=== PATIENT | male | born 1960 | race Caucasian/White ===

== ENCOUNTER 2018-10-25 20:01 | Emergency (ER) | payer BC ==
[2018-10-25 20:07] VITALS: RESP 18; TEMP 98
[2018-10-25] MEDS ORDERED: DIAZEPAM 5 MG TAB PO STA (20:19)
[2018-10-25] MEDS ORDERED: HYDROcodone/APAP 5-325MG 1 EACH TAB PO STA (20:19)
[2018-10-25] MEDS ORDERED: ACET/COD 300 MG/30 MG STARTER PACK 6 TAB BTL PO STA (20:35)
--- NOTE | 2018-10-25 20:53 | XR ---
EXAMINATION TYPE: XR lumbar spine 2 or 3V DATE OF EXAM: 10/25/2018 COMPARISON: NONE HISTORY: Injury and pain TECHNIQUE: 3 views FINDINGS: There is 2 cm anterior subluxation of L4 in relation L5. There is severe narrowing of L4-5 disc space. 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 Sacroiliac joints are intact. There is no compressio n fracture. 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 No acute fracture seen.
--- NOTE | 2018-10-25 21:02 | ED ---
Fall HPI - General Chief Complaint: Fall Stated Complaint: Fall/Back Pain Time Seen by Provider: 10/25/18 20:06 Source: patient, EMS Mode of arrival: EMS - History of Present Illness Initial Comments: 58-year-old male presenting for low back pain and fall. Patient states that he was walking from his living room on to his posterior drawer with a step-off. He states he slipped causing to fall his left side of his back. Patient states that he had pain at the left side of his back however he was able to ambulate denies any numbness tingling or loss of sensation of the legs he denies any pain radiating down the legs. He denies any injury to the abdomen or chest. Denies any head injury or injury to the neck. Patient denied loss of consciousness. Patient denies use of blood thinners. Patient states that he felt like he could go to an urgent care for imaging studies and then go home however went to an urgent care facility where they performed number x-rays were revealing no fractures and then was sent to the emergency department for further evaluation. Patient has no other complaints aside from the left lower back pain. - Related Data Home Medications Medication Instructions Recorded Confirmed Ibuprofen [Motrin] 200 mg PO Q6HR PRN 04/21/15 04/27/15 Ranitidine HCl [Zantac] 150 mg PO QAM 04/21/15 04/27/15 guaiFENesin [Mucinex] 600 mg PO DAILY 04/21/15 04/27/15 Acetaminophen [Tylenol] 750 mg PO Q4H 04/27/15 04/27/15 Previous Rx's Medication Instructions Recorded Cyclobenzaprine [Flexeril] 10 mg PO TID PRN 7 Days #21 tab 10/25/18 Allergies Allergy/AdvReac Type Severity Reaction Status Date / Time No Known Allergies Allergy Verified 04/21/15 15:51 Review of Systems ROS Statement: Those systems with pertinent positive or pertinent negative responses have been documented in the HPI. ROS Other: All systems not noted in ROS Statement are negative. Past Medical History Past Medical History: GERD/Reflux Additional Past Medical History / Comment(s): hx vericose veins,leptospirosis History of Any Multi-Drug Resistant Organisms: None Reported Additional Past Surgical History / Comment(s): varicose veins Past Anesthesia/Blood Transfusion Reactions: No Reported Reaction Past Psychological History: No Psychological Hx Reported Smoking Status: Never smoker Past Alcohol Use History: None Reported Past Drug Use History: None Reported - Past Family History Mother Family Medical History: Cancer Additional Family Medical History / Comment(s): lung ca Father Family Medical History: No Reported History General Exam - General Exam Comments Initial Comments: General: The patient is awake and alert, in no distress, and does not appear acutely ill. Eye: +3 mm pupils are equal, round and reactive to light, extra-ocular movements are intact. No nystagmus. There is normal conjunctiva bilaterally. No signs of icterus. Ears, nose, mouth and throat: There are moist mucous membranes and no oral lesions. No raccoon or murillo sign. Neck: The neck is supple, there is no tenderness or JVD. Cardiovascular: There is a regular rate and rhythm. No murmur, rub or gallop is appreciated. Respiratory: Lungs are clear to auscultation, respirations are non-labored, breath sounds are equal. No wheezes, stridor, rales, or rhonchi. Gastrointestinal: Soft, non-distended, non-tender abdomen without masses or organomegaly noted. There is no rebound or guarding present. No CVA tenderness. Bowel sounds are unremarkable. Musculoskeletal: Upon inspection of the back of the very low lumbar spine there is an area of superficial abrasion and ecchymosis. This is to the left of the spine. There is no ecchymosis in the area of the CVA region. Normal ROM, no tenderness of the lower extremity is bilaterally. Strength 5/5 of the lower extremities equal and comparison bilaterally. Sensation intact of the lower extremities including the saddle region bilaterally. DP pulses equal bilaterally 2+. Ambulates without difficulty. Neurological: A&O x 3. CN II-XII intact grossly, There are no obvious motor or sensory deficits. Coordination appears grossly intact. Speech is normal. Skin: Skin is warm and dry and no rashes or lesions are noted. Psychiatric: Cooperative, appropriate mood & affect, normal judgment. Course Vital Signs 10/25/18 10/25/18 20:04 21:19 Temperature 98 F 98 F Pulse Rate 77 86 Respiratory 18 18 Rate Blood Pressure 129/77 119/86 O2 Sat by Pulse 96 93 L Oximetry Medical Decision Making - Medical Decision Making Very well-appearing 58-year-old male presenting for back pain after fall. Imaging studies revealed no acute process such as fracture. Patient has minimal midline tenderness to palpation on lumbar spine examination no midline tenderness to patient the cervical thoracic spine. Patient does have mostly paravertebral tenderness left-sided. Motor there is an area of a superficial abrasion as well as mild ecchymosis. No ecchymosis in the CVA region. Patient has no abdominal pain. Patient has no findings consistent with cauda equina and ambulate without difficulty. The pain does not radiate down the legs. Patient has no radicular symptoms. Patient denies head injury or any other areas of complaint. At this time do feel patient is stable for discharge with a muscle relaxant as well as pain medication. Patient is agreeable this care plan and was discharged appearing well and discussed the case by attending provider Dr. Hatch who was agreeable with patient care and discharge. Disposition Clinical Impression: Back pain, Fall, Ecchymosis Disposition: HOME SELF-CARE Condition: Good Instructions (If sedation given, give patient instructions): Low Back Strain (ED) Additional Instructions: Please use medication as discussed. Please follow-up with family doctor in the next 2 days. Please return to emergency room if the symptoms increase or worsen or for any other concerns-including loss of bowel or bladder control, unable to urinate fevers inability to walk loss of sensation of the lower extremities or weakness of the lower extremities.. Prescriptions: Cyclobenzaprine [Flexeril] 10 mg PO TID PRN 7 Days #21 tab PRN Reason: Muscle Spasm Is patient prescribed a controlled substance at d/c from ED?: No Referrals: Jonathan Lin MD [Primary Care Provider] - 1-2 days Time of Disposition: 21:08
[2018-10-25 21:21] VITALS: BP 119/86; PULSE 86
== END 2018-10-25 21:23 | disposition home or self-care (01) ==
LOC: EC 20:01
DX: S30.0XXA Contusion of lower back and pelvis, initial encounter (principal); K21.9 Gastro-esophageal reflux disease without esophagitis; Z79.899 Other long term (current) drug therapy; W01.0XXA Fall on same level from slipping, tripping and stumbling without subsequent striking against object, initial encounter; Y93.01 Activity, walking, marching and hiking; Y92.008 Other place in unspecified non-institutional (private) residence as the place of occurrence of the external cause
CPT/HCPCS: 72100; 99283

== ENCOUNTER → 2018-10-30 | Outpatient (CLI) | payer BC ==
--- NOTE | 2018-10-30 08:58 | MR ---
EXAMINATION TYPE: MR lumbar spine wo con DATE OF EXAM: 10/30/2018 COMPARISON: Lumbar spine x-ray from 5 days ago HISTORY: Falling injury with left-sided low back pain. Lumbar disc prolapse per order. TECHNIQUE: Multiplanar, multisequence imaging of the lumbar spine is performed without IV contrast. FINDINGS: Sagittal images of the lumbar spine show persistent grade 2 anterolisthesis L4 on L5 measur ed 12 mm sagittal image 8. Vertebral body heights are maintained. Multilevel disc desiccation is seen . There is advanced disc space narrowing with vacuum phenomenon L4-L5 level. Bone marrow signal inten sity so some heterogeneity. There is heterogeneous with Modic type I endplate changes extending to ri ght of midline L4-L5 level. There is mild to moderate multilevel anterior spurring. Conus medullaris is normal in position and signal in the inferior L1 level Axial images show the T12-L1 level to appear within normal limits. Axial images at the L1-L2 level shows mild broad-based posterior disc protrusion mildly effacing the anterior thecal sac on axial image 25. Axial images at the L2-L3 level show mild facet degenerative changes bilaterally. There is mild-to-mo derate broad disc bulge effacing the anterior thecal sac. There is mild left greater than right infer ior neural foraminal narrowing. Axial images at the L3-L4 level show moderate facet degenerative changes and ligamentum flavum hypert rophy effacing posterolateral thecal sac. There is mild broad disc bulge. Spinal canal is preserved. Bilateral neural foramina are patent. Axial images at the L4-L5 level shows spondylolisthesis and pseudodisc herniation with [id number] te facet arthropathy. Spinal canal is pushed posteriorly at this level but fairly well-maintained. Th ere is moderate bilateral inferior neural foraminal narrowing noted. Axial images at the L5-S1 level show [id number] facet degenerative changes bilaterally. Spinal canal is preserved. Bilateral neural foramina are patent. No suspicious incidental retroperitoneal findings. IMPRESSION: Grade 2 spondylolisthesis L4-L5 level. Multilevel degenerative changes are seen as detail ed above. Scattered smaller disc herniations. No large disc herniation. Multilevel facet arthropathy noted.
== END | disposition home or self-care (01) ==
LOC: RADMRIMAIN 07:34
PROVIDERS: ATTEND Family Medicine
DX: M51.26 Other intervertebral disc displacement, lumbar region (principal); M43.16 Spondylolisthesis, lumbar region; M47.816 Spondylosis without myelopathy or radiculopathy, lumbar region; M46.96 Unspecified inflammatory spondylopathy, lumbar region
CPT/HCPCS: 72148

== ENCOUNTER 2019-01-28 09:00 | Day surgery (SDC) | payer BC ==
[2019-01-26 09:28] VITALS: BMI 31.1
--- NOTE | 2019-01-28 08:32 | P.GSHP ---
History of Present Illness H&P Date: 01/28/19 CHIEF COMPLAINT: Colon screen HISTORY OF PRESENT ILLNESS: The patient is a 58-year-old male who presents for colon screen. Lower endoscopy was offered for further evaluation and management. PAST MEDICAL HISTORY: Please see list. PAST SURGICAL HISTORY: Please see list. MEDICATIONS: Please see list. ALLERGIES: Please see list. SOCIAL HISTORY: No illicit drug use FAMILY HISTORY: No reports of Crohn disease or ulcerative colitis. REVIEW OF ORGAN SYSTEMS: CONSTITUTIONAL: No reports of fevers or chills. PHYSICAL EXAM: VITAL SIGNS: Stable GENERAL: Well-developed pleasant in no acute distress. HEENT: No scleral icterus. Extraocular movements grossly intact. Moist buccal mucosa. NECK: Supple without lymphadenopathy. CHEST: Unlabored respirations. Equal bilateral excursions. CARDIOVASCULAR: Regular rate and rhythm. Distal 2+ pulses. ABDOMEN: Soft, nontender, nondistended. MUSCULOSKELETAL: No clubbing, cyanosis, or edema. ASSESSMENT: 1. Colon screen. PLAN: 1. Recommend proceeding with a lower endoscopy Past Medical History Past Medical History: GERD/Reflux Additional Past Medical History / Comment(s): hx varicose veins, leptospirosis 1998 History of Any Multi-Drug Resistant Organisms: None Reported Additional Past Surgical History / Comment(s): varicose veins sx, eye sx Past Anesthesia/Blood Transfusion Reactions: No Reported Reaction Smoking Status: Never smoker - Past Family History Mother Family Medical History: Cancer Additional Family Medical History / Comment(s): lung ca Father Family Medical History: No Reported History Medications and Allergies Home Medications Medication Instructions Recorded Confirmed Type Acetaminophen [Tylenol] 750 mg PO Q4H PRN 04/27/15 01/26/19 History Ranitidine HCl [Zantac] 150 mg PO DAILY PRN 01/26/19 01/26/19 History Allergies Allergy/AdvReac Type Severity Reaction Status Date / Time No Known Allergies Allergy Verified 01/26/19 09:22
[~2019-01-28 09:00] MED LIST: LACTATED RINGERS 1,000 ML IV SCH; LIDOCAINE 1% 20 ML VIAL (10MG/ML) FOR IV START INTRADERMA PRN
[2019-01-28 09:36] VITALS: RESP 16; TEMP 97.1
[2019-01-28] MEDS ORDERED: PROPOFOL 10 MG/ML 20 ML VIAL IV ONE (10:12)
--- NOTE | 2019-01-28 10:50 | P.PCN ---
Date of Procedure: 01/28/19 Description of Procedure: PREOPERATIVE DIAGNOSIS: Personal history colon polys Family history colon polyps Colonoscopy screening, high risk POSTOPERATIVE DIAGNOSIS: Personal history colon polys Family history colon polyps Colonoscopy screening, high risk Multiple tubular adenomas throughout the colon. External hemorrhoids, grade 2 OPERATION: Colonoscopy to the ileocecal valve and appendiceal orifice. Colonoscopy with multiple hot snare polypectomies SURGEON: Manju Amador MD. ANESTHESIA: MAC. INDICATIONS: The patient is a 58-year-old female who presents for colonoscopy screening. Last colonoscopy over 3 years ago. Benefits and risks were described and informed consent was obtained. DESCRIPTION OF PROCEDURE: The patient had undergone Golytely prep. He had been brought into the operating room and laid in the left lateral decubitus position. After adequate intravenous sedation, the rectum was examined with 2% lidocaine jelly. The prostate was unremarkable. External hemorrhoids were encountered. The rectal tone was within normal limits. No lesions were palpated in the rectal vault. An Olympus colonoscope was advanced until the ileocecal valve and appendiceal orifice were clearly viewed. The prep was fair with visualization of the mucosal folds. The scope was removed with visualization of each mucosal fold. No scattered diverticulosis was encountered. Multiple colonic polyps were found and treated with snare polypectomy. No evidence of focal colitis was found. Retroflexion of the scope demonstrated grade 1 internal hemorrhoids without active bleeding or inflammation. The colon was desufflated. The patient had tolerated the procedure well. Withdrawal time was over 6 minutes. FINDINGS: Aronchick preparation quality scale 2 (1-5) Internal hemorrhoids, grade 1 External hemorrhoids, grade 2. No arteriovenous malformations. No sigmoid diverticulosis Removal of 5 polyps: - Snare polypectomy ascending colon x 2, 5 and 6 mm tubulovillous adenoma polyp. - Snare polypectomy at hepatic flexure, 8 mm flat villous adenoma polyp. - Snare polypectomy of proximal transverse colon, 12 mm flat villous adenoma polyp. - Snare polypectomy of proximal midtransverse colon, 6 mm flat villous adenoma polyp. No focal colitis. RECOMMENDATIONS: Given severity of tubular adenomas, recommend repeat colonoscopy 2 years, 2020. Plan - Discharge Summary Discharge Rx Participant: No New Discharge Prescriptions: No Action Acetaminophen [Tylenol] 750 mg PO Q4H PRN PRN Reason: Pain Ranitidine HCl [Zantac] 150 mg PO DAILY PRN PRN Reason: GERD Discharge Medication List Acetaminophen [Tylenol] 750 mg PO Q4H PRN 04/27/15 [History] Ranitidine HCl [Zantac] 150 mg PO DAILY PRN 01/26/19 [History] Follow up Appointment(s)/Referral(s): Manju Amador MD [STAFF PHYSICIAN] - As Needed Patient Instructions/Handouts: Colorectal Polyps (DC) Activity/Diet/Wound Care/Special Instructions: Repeat colonoscopy 2 years, 2020 Discharge Disposition: HOME SELF-CARE
[2019-01-28 11:28] VITALS: BP 132/80; PULSE 75
== END 2019-01-28 11:50 | disposition home or self-care (01) ==
LOC: ORWHC2ENDO 09:00
PROVIDERS: ATTEND Surgery Plastic and Reconstructive Surgery
DX: Z12.11 Encounter for screening for malignant neoplasm of colon (principal); D12.2 Benign neoplasm of ascending colon; D12.3 Benign neoplasm of transverse colon; K64.4 Residual hemorrhoidal skin tags; K64.8 Other hemorrhoids; K21.9 Gastro-esophageal reflux disease without esophagitis; I83.90 Asymptomatic varicose veins of unspecified lower extremity; Z80.1 Family history of malignant neoplasm of trachea, bronchus and lung; Z86.010 Personal history of colon polyps; Z83.71 Family history of colonic polyps; Z79.899 Other long term (current) drug therapy; Z98.890 Other specified postprocedural states
CPT/HCPCS: 88305; 45385; J2704

== ENCOUNTER → 2020-03-25 | Outpatient (CLI) | payer BC ==
[2020-03-25 08:49] LABS: Basophils # (A) 0.1 k/uL (0-0.2); Basophils % (A) 1 %; Eosinophils # (A) 0.5 k/uL (0-0.7); Eosinophils % (A) 6 %; HCT 49.3 % (39.0-53.0); Lymphocytes # (A) 1.8 k/uL (1.0-4.8); Lymphocytes % (A) 21 %; MCH 30.7 pg (25.0-35.0); MCHC 34.5 g/dL (31.0-37.0); Mean Platelet Volume 6.5; Monocytes # (A) 0.6 k/uL (0-1.0); Monocytes % (A) 7 %; Neutrophils # (A) 5.3 k/uL (1.3-7.7); Neutrophils % (A) 62 %; Platelet Count 329 k/uL (150-450); RBC 5.54 m/uL (4.30-5.90); RDW 12.5 % (11.5-15.5); WBC 8.4 k/uL (3.8-10.6)
[2020-03-25 09:06] LABS: Appearance,Urine Clear (Clear); Bilirubin,Urine Negative (Negative); Blood,Urine Negative (Negative); Color,Urine Light Yellow; Glucose,Urine (UA) Negative (Negative); Ketones,Urine Negative (Negative); Leukocyte Esterase,Urine Negative (Negative); Nitrite,Urine Negative (Negative); PH, Urine 5.5 (5.0-8.0); Protein,Urine Negative (Negative); Specific Gravity,Urine 1.004 (1.001-1.035); Urobilinogen,Urine <2.0 mg/dL (<2.0)
[2020-03-25 15:53] LABS: African American GFR (CKD) 85.3 (60.0-200.0); Albumin 4.3 g/dL (3.80-4.90); Albumin/Globulin Ratio 2.15 (1.60-3.17); Anion Gap 7.6 mmol/L (4.00-12.00); BUN/Creat Ratio 12.73 Ratio (12.00-20.00); Calcium 9.5 mg/dL (8.7-10.3); Carbon Dioxide 26.4 mmol/L (21.6-31.8); Chol/HDL Ratio 5.97; LDL Cholesterol,Calculated 144.2 mg/dL (0.0-131.0); Non-African American GFR(CKD) 73.6 (60.0-200.0); Potassium 4.2 mmol/L (3.5-5.5); Total Bilirubin 0.7 mg/dL (0.2-1.2); Total Protein 6.3 g/dL (6.2-8.2); VLDL Calculation 34.8 mg/dL (5.00-40.00)
[2020-03-25 16:01] LABS: PSA Annual Screen 1.4 ng/mL (0.0-4.0)
== END | disposition home or self-care (01) ==
LOC: LABWHC1 08:08
PROVIDERS: ATTEND Family Medicine
DX: Z00.00 Encounter for general adult medical examination without abnormal findings (principal); Z12.5 Encounter for screening for malignant neoplasm of prostate; E55.9 Vitamin D deficiency, unspecified
CPT/HCPCS: 80061; 80053; 84443; 85025; 81003; 82306; 36415; G0103

== ENCOUNTER 2022-01-18 07:49 | Day surgery (SDC) | payer BC ==
[2022-01-16 11:03] VITALS: BMI 29.0
[2022-01-18] MEDS ORDERED: LACTATED RINGERS 1,000 ML IV SCH (07:50)
[2022-01-18] MEDS ORDERED: LIDOCAINE 1% (10MG/ML) FOR IV START INTRADERMA PRN (07:50)
[2022-01-18 08:37] VITALS: TEMP 97.7
[2022-01-18] MEDS ORDERED: PROPOFOL 10 MG/ML 20 ML VIAL IV ONE (09:32)
--- NOTE | 2022-01-18 09:33 | P.GSHP ---
History of Present Illness H&P Date: 01/18/22 CHIEF COMPLAINT: Colon screen HISTORY OF PRESENT ILLNESS: The patient is a 61-year-old male who presents for colon screen. Lower endoscopy was offered for further evaluation and management. PAST MEDICAL HISTORY: Please see list. PAST SURGICAL HISTORY: Please see list. MEDICATIONS: Please see list. ALLERGIES: Please see list. SOCIAL HISTORY: No illicit drug use FAMILY HISTORY: No reports of Crohn disease or ulcerative colitis. REVIEW OF ORGAN SYSTEMS: CONSTITUTIONAL: No reports of fevers or chills. PHYSICAL EXAM: VITAL SIGNS: Stable GENERAL: Well-developed pleasant in no acute distress. HEENT: No scleral icterus. Extraocular movements grossly intact. Moist buccal mucosa. NECK: Supple without lymphadenopathy. CHEST: Unlabored respirations. Equal bilateral excursions. CARDIOVASCULAR: Regular rate and rhythm. Distal 2+ pulses. ABDOMEN: Soft, nontender, nondistended. MUSCULOSKELETAL: No clubbing, cyanosis, or edema. ASSESSMENT: 1. Colon screen. PLAN: 1. Recommend proceeding with a lower endoscopy Past Medical History Past Medical History: GERD/Reflux Additional Past Medical History / Comment(s): hx varicose veins, leptospirosis 1998 History of Any Multi-Drug Resistant Organisms: None Reported Additional Past Surgical History / Comment(s): varicose veins sx, eye sx Past Anesthesia/Blood Transfusion Reactions: No Reported Reaction Smoking Status: Never smoker - Past Family History Mother Family Medical History: Cancer Additional Family Medical History / Comment(s): lung ca Father Family Medical History: No Reported History Medications and Allergies Home Medications Medication Instructions Recorded Confirmed Type Loratadine 10 mg PO DAILY 01/16/22 01/18/22 History Allergies Allergy/AdvReac Type Severity Reaction Status Date / Time No Known Allergies Allergy Verified 01/18/22 08:37 Surgical - Exam Vital Signs Temp Pulse Resp BP Pulse Ox 97.7 F 71 16 142/85 98 01/18/22 08:34 01/18/22 08:34 01/18/22 08:34 01/18/22 08:34 01/18/22 08:34
--- NOTE | 2022-01-18 10:11 | P.PCN ---
Date of Procedure: 01/18/22 Description of Procedure: PREOPERATIVE DIAGNOSIS: Personal history of colon polyps POSTOPERATIVE DIAGNOSIS: Tubular adenoma of descending colon Tubular adenoma sigmoid colon Tubular adenoma transverse colon Sigmoid diverticulosis Internal hemorrhoids, grade 2 OPERATION: Colonoscopy to the ileocecal valve and appendiceal orifice, cecum Colonoscopy with hot snare polypectomy SURGEON: Manju Amador MD. ANESTHESIA: MAC. INDICATIONS: The patient is an 61-year-old male who presents personal history of colon polyps. Last colonoscopy 5 years. Benefits and risks were described and informed consent was obtained. DESCRIPTION OF PROCEDURE: The patient had undergone Sutab prep. The patient had been brought into the operating room and laid in the left lateral decubitus position. After adequate intravenous sedation, the rectum was examined with 2% lidocaine jelly. The prostate was unremarkable. External hemorrhoids were encountered. The rectal tone was within normal limits. No lesions were palpated in the rectal vault. An Olympus colonoscope was advanced until the cecum, ileocecal valve and appendiceal orifice were clearly viewed. The prep was good. Sigmoid diverticulosis was encountered. Colonic polyps were found and removed. No evidence of focal colitis was found. Retroflexion of the scope demonstrated grade 2 internal hemorrhoids without active bleeding or inflammation. The colon was desufflated. The patient had tolerated the procedure well. Withdrawal time was over 6 minutes. FINDINGS: Aronchick preparation quality scale 2 (1-5) Internal hemorrhoids, grade 2 External hemorrhoids, grade 2. No arteriovenous malformations. Sigmoid diverticulosis Removal of 4 polyps: - Snare polypectomy 20 cm from the anal verge, 5 mm tubulovillous adenoma polyp, sigmoid colon - Snare polypectomy transverse, 8 mm flat villous adenoma polyp. - Snare polypectomy 40 cm from the anal verge 2, 6-8 mm flat villous adenoma polyp, descending colon No focal colitis. RECOMMENDATIONS: Given severity of tubular adenomas, recommend repeat colonoscopy 3 years, 2024 Plan - Discharge Summary Discharge Rx Participant: No New Discharge Prescriptions: Continue Loratadine 10 mg PO DAILY Discharge Medication List Loratadine 10 mg PO DAILY 01/16/22 [History] Follow up Appointment(s)/Referral(s): Manju Amador MD [STAFF PHYSICIAN] - 02/06/22 Patient Instructions/Handouts: Diverticulosis (DC), Colorectal Polyps (GEN), Diverticulosis Diet (GEN) Activity/Diet/Wound Care/Special Instructions: Repeat colonoscopy in 3 years, 2024 Discharge Disposition: HOME SELF-CARE
[2022-01-18 10:25] VITALS: BP 122/78; PULSE 63; RESP 14
== END 2022-01-18 10:45 | disposition home or self-care (01) ==
LOC: ORWHC2ENDO 07:49
PROVIDERS: ATTEND Surgery Plastic and Reconstructive Surgery
DX: Z12.11 Encounter for screening for malignant neoplasm of colon (principal); D12.3 Benign neoplasm of transverse colon; D12.4 Benign neoplasm of descending colon; D12.5 Benign neoplasm of sigmoid colon; K57.30 Diverticulosis of large intestine without perforation or abscess without bleeding; K64.8 Other hemorrhoids; K21.9 Gastro-esophageal reflux disease without esophagitis; Z80.1 Family history of malignant neoplasm of trachea, bronchus and lung; Z87.19 Personal history of other diseases of the digestive system
CPT/HCPCS: 88305; 45385; J2704

== ENCOUNTER → 2022-11-15 | Outpatient (CLI) | payer OTHER ==
--- NOTE | 2022-11-15 11:16 | XR ---
EXAMINATION TYPE: XR ankle complete LT DATE OF EXAM: 11/15/2022 COMPARISON: NONE HISTORY: Pain FINDINGS: Three views of the ankle demonstrate the ankle mortise to be intact and symmetric. The joint spaces are preserved. The osseous structures are intact. Soft tissue edema. Calcaneal spur noted. Soft tis florencio ossification calcification. IMPRESSION: 1. No definite acute fracture or dislocation, if symptoms persist follow-up study in 7 to 10 days wou ld be suggested.
--- NOTE | 2022-11-15 11:18 | XR ---
EXAMINATION TYPE: XR foot complete LT DATE OF EXAM: 11/15/2022 COMPARISON: NONE HISTORY: Pain TECHNIQUE: Three views are submitted. FINDINGS: The osseous structures are intact. There is no acute fracture or dislocation. Joint spaces are p reserved. Calcaneal spurs. Hammertoe deformities. Mild hypertrophic arthropathy first MTP. IMPRESSION: 1. No acute fracture or dislocation. If symptoms persist, follow-up exam in 7 to 10 days could be ob tained.
== END | disposition home or self-care (01) ==
LOC: RADXRMAIN 10:56
PROVIDERS: ATTEND Emergency Medicine
DX: S93.402A Sprain of unspecified ligament of left ankle, initial encounter (principal); S93.602A Unspecified sprain of left foot, initial encounter

== ENCOUNTER → 2023-12-06 | Outpatient (CLI) | payer BC ==
[2023-12-06 15:25] LABS: HCT 47.3 % (39.6-50.0); HGB 15.9 g/dL (13.0-17.0); MCH 30.2 pg (27.0-32.0); MCHC 33.6 g/dL (32.0-37.0); MCV 89.8 FL (80.0-97.0); Mean Platelet Volume 10.3 FL (9.5-12.2); NRBC Per 100 WBC 0 X 10*3/uL (0.00-0.01); Platelet Count 351 X 10*3/uL (140-440); RBC 5.27 X 10*6/uL (4.40-5.60); WBC 6.34 X 10*3/uL (4.50-10.00)
[2023-12-06 16:40] LABS: ALT 19 U/L (10-49); AST 19 U/L (14-35); Albumin 4.3 g/dL (3.8-4.9); Albumin/Globulin Ratio 2.05 Ratio (1.60-3.17); Alkaline Phosphatase 65 U/L (41-126); BUN/Creat Ratio 12.12 Ratio (12.00-20.00); Blood Urea Nitrogen 9.7 mg/dL (9.0-27.0); Calcium 9.4 mg/dL (8.7-10.3); Carbon Dioxide 21.8 mmol/L (21.6-31.8); Chloride 107 mmol/L (96-109); Chol/HDL Ratio 5.04 Ratio; Globulin 2.1 g/dL (1.6-3.3); Glucose 92 mg/dL (70-110); LDL Cholesterol,Calculated 136.3 mg/dL (0.0-131.0); Potassium 4.4 mmol/L (3.5-5.5); Prostate Specific Antigen 1.69 ng/mL (0.000-4.500); Sodium 141 mmol/L (135-145); Total Bilirubin 0.4 mg/dL (0.3-1.2); Total Protein 6.4 g/dL (6.2-8.2)
== END | disposition home or self-care (01) ==
LOC: LABWHC1 09:57
PROVIDERS: ATTEND Family Medicine
DX: Z00.01 Encounter for general adult medical examination with abnormal findings
CPT/HCPCS: 36415; 80053; 80061; 82306; 84153; 85027